=== PATIENT | female | born 1990 | race Caucasian/White ===

== ENCOUNTER 2018-08-14 16:50 | Emergency (ER) | payer MEDICAID, OTHER ==
[~2018-08-14] VITALS: Ht 165.1 cm; Wt 57.0 kg
[2018-08-14 20:03] VITALS: BP 121/74
== END 2018-08-14 20:03 | disposition home or self-care (01) ==
LOC: ER 16:50
DX: S90.122A Contusion of left lesser toe(s) without damage to nail, initial encounter (principal); F12.10 Cannabis abuse, uncomplicated; F17.200 Nicotine dependence, unspecified, uncomplicated; Z90.89 Acquired absence of other organs; W04.XXXA Fall while being carried or supported by other persons, initial encounter; Y93.89 Activity, other specified; Y92.89 Other specified places as the place of occurrence of the external cause; Y99.8 Other external cause status
CPT/HCPCS: 73630; 99283

== ENCOUNTER 2025-02-21 08:42 | Emergency (ER) | payer OTHER, MEDICAID ==
[~2025-02-21] VITALS: Ht 160 cm; Wt 50.8 kg
[2025-02-21 08:44] VITALS: TEMP 36.7; O2SAT 100
[2025-02-21] MEDS: IBUPROFEN 600MG TABLET PO ONE (10:54)
[2025-02-21 11:00] VITALS: BP 110/73; PULSE 60; RESP 16; O2SAT 100
== END 2025-02-21 11:00 | disposition home or self-care (01) ==
LOC: ER 08:42
DX: M25.522 Pain in left elbow (principal); F12.90 Cannabis use, unspecified, uncomplicated; Z98.890 Other specified postprocedural states
CPT/HCPCS: 73080; 99283